=== PATIENT | female | born 1945 | race Caucasian/White ===

== ENCOUNTER 2016-04-02 09:11 | Outpatient (CLI) | payer MEDICARE, OTHER ==
[~2016-04-02] VITALS: Ht 165.1 cm; Wt 69.1 kg
--- NOTE | ~2016-04-02 | HEMODYNAMI ---
PATIENT:Darling BOWER MEDICAL RECORD: [id number] : 49 LOCATION:DGLADIS ADMISSION DATE: 04/02/16 Generatedon:04/02/201614:26 Patient name: Darling BOWER Patient #: [id number] SSN: : 1945 Date of study: 04/02/2016 Page: Of Hemodynamic Procedure Report Patient Data Patient Demographics Procedure consent was obtained First Name: Darling Gender: Female Last Name: CHELI : 1945 Middle Initial: L Age: 71 year(s) Patient #: [id number] Race: Additional ID: [id number] Contact details Address: [address] [place] [address] [address] State: [place] City: [place] Zip code: [address] Past Medical History Allergies Allergen Reaction Date Comments Reported Penicillins 04/02/2016 Other allergy 04/02/2016 no grains, corn, dairy, wheat Other allergy 04/02/2016 erythrimycin Admission Admission Data Admission Date: 04/02/2016 Admission Time: 9:11 Lab Results Lab Result Date: 04/02/2016 Lab Result Time: 0:00 Biochemistry Name Units Result Min Max BUN mg/dl 15 --(--*-)-- 7 18 Creatinine mg/dl 0.8 --(-*--)-- 0.6 1.3 CBC Name Units Result Min Max Hemoglobin g/dl 13.3 -*(----)-- 13.5 17.5 Procedure Procedure Types Cath Procedure Diagnostic Procedure PPM/ICD Loop Recorder Implant Procedure Description Procedure Date Procedure Date: 04/02/2016 Procedure Start Time: 14:17 Procedure End Time: 14:26 Procedure Staff Name Function Nahid Da Silva MD Performing Physician Radha Beltran RT Scrub Cathleen Heck RN Nurse Reinaldo Boogie RT Monitor Reggie Lawson RT Biomedical Specialist Procedure Data Procedure Complications No complications Procedure Medications Medication Administration Route Dosage Vancomycin I.V.P.B 500 mg Oxygen NC 2 l/min Versed I.V. 1 mg Fentanyl I.V. 50 mcg Versed I.V. 1 mg Fentanyl I.V. 50 mcg Hemodynamics Rest Pre Cath Intra NCS Post Cath Vital Signs Time Heart Resp SPO2 etCO2 TC1wyoa NIBP (mmHg) Rhythm Pain Sedation Rate (ipm) (%) (mmHg) (mmHg) Status Level (bpm) 14:01:20 64 21 100 0 0 Measuring NSR 0 (11) 10(A) , No pain 14:01:57 70 29 99 0 0 157/71(116) NSR 0 (11) 10(A) , No pain 14:06:21 63 27 100 0 0 154/64(118) NSR 0 (11) 10(A) , No pain 14:10:41 70 20 100 0 0 152/72(119) NSR 0 (11) 10(A) , No pain 14:15:09 66 21 100 0 0 140/56(107) NSR 0 (11) 10(A) , No pain 14:20:08 74 28 100 0 0 Measuring NSR 0 (11) 10(A) , No pain 14:20:29 80 30 100 0 0 161/76(128) NSR 0 (11) 10(A) , No pain 14:24:53 83 22 100 0 0 170/79(110) NSR 0 (11) 10(A) , No pain Medications Time Medication Route Dose Verified Delivered Reason Notes Effective ness by by 14:01:42 Vancomycin I.V.P.B 500 Nahid Russellie Per mg Rekha Heck RN physician 14:01:55 Oxygen NC 2 Nahid Russellie used for l/min Rekha Heck RN procedure 14:15:25 Versed I.V. 1 mg Nahid Buffie for Rekha Heck RN sedation 14:15:31 Fentanyl I.V. 50 Nahid Russellie for mcg Rekha Heck RN sedation 14:20:54 Versed I.V. 1 mg Nahid Drewie for Rekha Heck RN sedation 14:20:58 Fentanyl I.V. 50 Nahid Drewie for mcg Rekha Heck RN sedation Procedure Log Time Note 13:38:52 Reggie Lawson RT(R) sent for patient. Start room use. 13:38:54 Time tracking: Regular hours 13:38:58 Plan of Care:Hemodynamics will remain stable., Cardiac rhythm will remain stable., Comfort level will be maintained., Respiratory function will remain adequate., Patient/ family verbilizes understanding of procedure., Procedure tolerated without complication., Recovers from procedure without complications.. 13:51:24 Medtronic truck sales representative Tavares Rangel present for procedure. 13:54:05 Patient received from Outpatients to CCL 2 Alert and oriented. Tansferred to table in Supine position. 13:54:06 Warm blankets applied, and slade hugger turned on for patient comfort. 13:54:06 Correct patient and procedure confirmed by team. 13:54:08 Signed procedure consent form obtained from patient. 13:54:08 ECG and BP/O2 sat monitors applied to patient. 13:54:38 H&P Date Dictated: 03/30/2016 Within 30 days and on chart., H&P Addendum completed by physician on day of procedure. (MUST COMPLETE FOR ALL OUTPATIENTS). 13:54:40 Pre-procedure instructions explained to patient. 13:54:40 Pre-op teaching completed and patient verbalized understanding. 13:54:41 Family in waiting room. 13:54:42 Patient NPO since Midnight. 13:59:30 Vital chart was started 14:01:42 Vancomycin 500 mg I.V.P.B was given by Cathleen Heck RN; Per physician; 14:01:55 Oxygen 2 l/min NC was given by Cathleen Heck RN; used for procedure; 14:04:50 Patient allergic to Penicillins 14:05:27 Patient allergic to Other allergyno grains, corn, dairy, wheat 14:06:16 Patient allergic to Other allergyerythrimycin 14:06:18 Is the patient allergic to Iodine/contrast media? No. 14:06:21 Was the patient premedicated? No 14:06:23 Is patient on blood thinner?No 14:06:25 Patient diabetic? No. 14:06:27 ----Pre-sedation anethsthesia assessment.---- 14:06:29 Previous problem with sedation/anesthesia? No ? 14:06:32 Snore? Yes 14:06:36 Sleep apnea? No 14:06:38 Deviated septum? No 14:06:39 Opens mouth fully? Yes 14:06:40 Sticks out tongue? Yes 14:06:43 Airway obstruction? No ? 14:06:46 Dentures? No ? 14:06:52 Patient pain scale 0/10 ?. 14:06:59 IV patent on arrival in left forearm with 0.9% NaCl at 10ml/hr. 14:10:00 Lab Result : Creatinine 0.8 mg/dl 14:10:00 Lab Result : BUN 15 mg/dl 14:10:00 Lab Result : Hemoglobin 13.3 g/dl 14:10:03 Lab results completed and on chart. 14:10:11 Left chest area was prepped with chlora-prep and draped in sterile fashion 14:10:12 Alarms reviewed by R. N. 14:10:13 Sharps counted by scrub and verified by R.N. 14:12:15 Physician paged 14:12:45 Dermabond Pen opened to sterile field. 14:14:53 --------ALL STOP TIME OUT------ 14:14:53 Final Timeout: patient, procedure, and site verified with staff and physician. All members of the team are in agreement. 14:15:15 Left chest site verified by team. 14:15:18 Physical assessment completed. ASA score P 2 - A patient with mild systemic disease as per Nahid Da Silva MD. 14:15:25 Versed 1 mg I.V. was given by Cathleen Heck RN; for sedation; 14:15:31 Fentanyl 50 mcg I.V. was given by Cathleen Heck RN; for sedation; 14:15:31 Sedation plan: IV Moderate Sedation Versed, Fentanyl 14:17:30 Procedure started. 14:17:30 Full Disclosure recording started 14:17:51 Local anesthetic to Chest area with Lidocaine 1% w/epi by Nahid Da Silva MD.INITIAL ACCESS ONLY 14:18:07 Incision made to mid chest. 14:18:09 Generator pocket made/opened. 14:18:27 LINQ INSERTED UNDER SKIN 14:19:35 DERMABOND THE INCISION THEN STERI-STRIP 14:20:54 Versed 1 mg I.V. was given by Cathleen Heck RN; for sedation; 14:20:58 Fentanyl 50 mcg I.V. was given by Cathleen Hcek RN; for sedation; 14:21:05 MEDTRONIC RE(TAVARES RANGEL) CHECKING THE DEVICE 14:22:02 Procedure ended.(Physican Out) 14:22:16 Post Chest area:stable, soft, clean and dry 14:22:21 Post procedure rhythm: sinus rhythm 14:22:22 Post procedure instruction explained to patient.Patient verbalizes understanding. 14:23:21 Medtronic Linq Loop Recorder opened to sterile field. 14:24:09 Patient needs reinforcement of post procedure teaching. 14:24:36 Procedure and supply charges have been captured, reviewed, submitted and are correct. 14:24:40 Procedure Complication : No complications 14:24:44 See physician's report for complete and final results. 14:24:49 Report given to Post Procedure Room. 14:26:03 Patient transfered to Post Procedure Room with Stretcher. 14:26:05 Procedure ended. 14:26:05 Full Disclosure recording stopped 14:26:13 End room use (Document Last) 14:26:43 Vital chart was stopped Device Usage Item Name Manufacture Quantity Catalog Hospital Part Current Minimal Lot# / Number Charge Number Stock Stock Serial# Code Dermabond [place] 1 [id number] 5 [facility] Medtronic Medtronic 1 [id number] 5 Linq Loop Recorder Signature Audit [place] Stage Time Signature Unsigned Intra-Procedure 04/02/2016 Radha 2:26:41 PM Counts RT(R) Signatures Monitor : Reinaldo Boogie RT Signature : Date : Time : [place] [id number] [place] [id number]
[2016-04-02] MEDS ORDERED: RESTASIS EYE DR30 EA EACH EYE (11:02)
[2016-04-02] MEDS ORDERED: LOSARTAN POTASS25 MG PO (11:02)
[2016-04-02 11:12] VITALS: BP 142/88; Ht 165.1 cm; Wt 69.1 kg
[2016-04-02 11:31] LABS: BASOPHILS 0.6 % (0.0-2.0); EOSINOPHILS 1.5 % (0-7); HEMATOCRIT 39.8 % (36.0-48.0); HEMOGLOBIN 13.3 g/dL (12-16); IMMATURE GRANULOCYTES 0.2 % (0-5); LYMPHOCYTES 32.5 % (15-50); MCH 31.3 pg (26.0-34.0); MCHC 33.4 g/dL (31.0-37.0); MCV 93.6 fL (80.0-100.0); MEAN PLATELET VOLUME 10.9 fL (7.4-10.4); MONOCYTES 5.2 % (2-11); PLATELET COUNT 244 10x3/uL (130-400); RBC 4.25 10x6/uL (4.00-5.40); RDW 12.8 % (11.5-14.5); WBC 6.5 10x3/uL (4.8-10.8)
[2016-04-02 11:42] LABS: CALC OSMOLALITY 281 mosm/kg (275-300); CALCIUM 9.4 mg/dL (8.5-10.1); CHLORIDE - SERUM 105 mmol/L (98-107); CREATININE - SERUM 0.8 mg/dL (0.6-1.3); GLUCOSE 91 mg/dL (74-106); POTASSIUM - SERUM 4.2 mmol/L (3.5-5.1); SODIUM 141 mmol/L (136-145); UREA NITROGEN 15 mg/dL (7-18); eGFR NON AFRICAN AMERICAN 75 mL/min (90-120)
--- NOTE | 2016-04-02 14:45 | NUR ---
VSS WITH CHEST PAIN DENIED DRESSING TO MID CHEST SITE OF LINQ LOOP CDI NO BLEEDING NO HEMATOMA NOTED. PATIENT ALERT AND TALKING TO FAMILY WITH NAUSEA DENIED
--- NOTE | 2016-04-02 15:23 | NUR ---
PIV REMOVED FROM LEFT ARM WITH DRESSING APPLIED PATIENT UP TO GET DRESSED FOR DISCHARGE
--- NOTE | 2016-04-02 15:36 | NUR ---
DISCHARGE INSTRUCTIONS GONE OVER WITH PATIENT AND LEFT VIA WC FOR TRANSPORT HOME
--- NOTE | 2016-04-08 13:59 | OP ---
PATIENT NAME: BLAYNE BOWER MEDICAL RECORD: [id number] :49 LOCATION:D.CAT ADMISSION DATE: SURGEON: PETER MILLAN MD DATE OF OPERATION: 04/02/2016 LINQ Placement. INDICATION: Recurrent syncope. PROCEDURE: After informed consent was obtained and after a detailed explanation of the risks, benefits as well as alternative therapies, the patient elected to proceed with LINQ placement. The left chest area was prepped and draped in normal sterile fashion. Left LINQ placement was undertaken subcutaneously of the left chest with R waves greater than 0.4. OVERALL IMPRESSION: Successful LINQ placement for recurrent syncope. TRANSINT:[id number] Voice Confirmation ID: [id number] DOCUMENT ID: [id number] PETER MILLAN MD at 1359 CC: [id number] DICTATION DATE: 04/02/16 1425 PHYSICIAN OFFICE REP: 04/02/161951 DEP CLI 04/02/16 [place] [id number] [place] [address]
== END 2016-04-02 15:38 | disposition home or self-care (01) ==
LOC: D.CATH 09:11
PROVIDERS: Internal Medicine Interventional Cardiology
DX: R55 Syncope and collapse (principal)

== ENCOUNTER 2016-04-08 10:47 | Outpatient (CLI) | payer MEDICARE, OTHER ==
[~2016-04-08] VITALS: Ht 165.1 cm; Wt 69.1 kg
--- NOTE | ~2016-04-08 | HEMODYNAMI ---
PATIENT:BLAYNE BOWER MEDICAL RECORD: [id number] : 49 LOCATION:DGLADIS ADMISSION DATE: 04/08/16 Generatedon:04/08/201614:07 Patient name: BLAYNE BOWER Patient #: [id number] SSN: D OB: 1945 Date of study: 04/08/2016 Page: Of Hemodynamic Procedure Report Patient Data Patient Demographics Procedure consent was obtained First Name: BLAYNE Gender: Female Last Name: CHELI : 1945 [facility] Initial: L Age: 71 year(s) Patient #: [id number] Race: Additional ID: [id number] Contact details Address: [address] [place] [address] State: [place] City: [place] Zip code: [address] Past Medical History Allergies Allergen Reaction Date Comments Reported Penicillins 04/02/2016 Other allergy 04/02/2016 no grains, corn, dairy, wheat Other allergy 04/02/2016 erythrimycin Penicillins 04/08/2016 Erythromycin 04/08/2016 Admission Admission Data Admission Date: 04/08/2016 Admission Time: 10:47 Admit Source: Other Lab Results Lab Result Date: 04/02/2016 Lab Result Time: 0:00 Biochemistry Name Units Result Min Max BUN mg/dl 15 --(--*-)-- 7 18 Creatinine mg/dl 0.8 --(-*--)-- 0.6 1.3 CBC Name Units Result Min Max Hemoglobin g/dl 13.3 -*(----)-- 13.5 17.5 Procedure Procedure Types Cath Procedure Diagnostic Procedure PPM/ICD PPM Dual Implant Procedure Description Procedure Date Procedure Date: 04/08/2016 Procedure Start Time: 13:22 Procedure End Time: 14:06 Procedure Staff Name Function Philip Coe MD Performing Physician Radha Beltran RT Scrub Rain Duval RN Nurse Erwin Lazcano RT Monitor Honorio Tello MD Assisting physician Procedure Data Cath Procedure Fluoroscopy Diagnostic fluoroscopy Total fluoroscopy Time: 4.1 time: 4.1 min min Diagnostic fluoroscopy Total fluoroscopy dose: dose: 23.96 mGy 23.96 mGy Contrast Material Contrast Material Type Amount (ml) Isovue 300 0 Estimated blood loss: 5 ml Procedure Complications No complications Procedure Medications Medication Administration Route Dosage Bupivacaine 0.5% 10 ml Lidocaine 1% with added to field 20 ml Epi Vancomycin Topical 1 g Irrigation Vancomycin I.V.P.B 1 g Versed I.V. 1 mg Fentanyl I.V. 50 mcg Versed I.V. 1 mg Fentanyl I.V. 50 mcg Versed I.V. 1 mg Fentanyl I.V. 50 mcg Versed I.V. 1 mg Fentanyl I.V. 50 mcg Zofran I.V. 4 mg Hemodynamics Rest HGB: 13.3 (g/dl) Heart Rate: 67 (bpm) Snapshots Pre Cath Intra NCS Post Cath Vital Signs Time Heart Resp SPO2 NIBP (mmHg) Rhythm Pain Sedation Rate (ipm) (%) Status Level (bpm) 12:57:51 64 19 99 172/81(136) NSR 0 (11) 10(A) , No pain 13:02:16 65 16 96 145/66(128) NSR 0 (11) 10(A) , No pain 13:06:42 65 16 96 152/62(136) NSR 0 (11) 10(A) , No pain 13:11:04 64 15 95 138/70(122) NSR 0 (11) 10(A) , No pain 13:15:16 59 16 95 147/79(119) NSR 0 (11) 10(A) , No pain 13:19:36 65 16 95 132/70(110) NSR 0 (11) 10(A) , No pain 13:24:35 77 16 99 Measuring NSR 0 (11) 10(A) , No pain 13:24:48 79 16 98 166/87(125) NSR 0 (11) 10(A) , No pain 13:29:47 84 13 97 Measuring NSR 0 (11) 10(A) , No pain 13:30:13 80 13 97 185/80(125) NSR 0 (11) 10(A) , No pain 13:34:35 90 14 93 167/76(114) NSR 0 (11) 10(A) , No pain 13:39:35 95 13 96 Measuring NSR 0 (11) 10(A) , No pain 13:39:55 94 14 96 174/87(129) NSR 0 (11) 10(A) , No pain 13:44:26 96 14 98 165/84(130) NSR 0 (11) 10(A) , No pain 13:48:52 83 15 96 176/82(127) NSR 0 (11) 10(A) , No pain 13:53:22 86 10 98 188/88(136) NSR 0 (11) 10(A) , No pain 13:57:52 81 13 96 177/82(127) NSR 0 (11) 10(A) , No pain 14:02:09 88 13 98 158/83(122) NSR 0 (11) 10(A) , No pain 14:06:33 85 14 98 171/79(119) NSR 0 (11) 10(A) , No pain Medications Time Medication Route Dose Verified Delivered Reason Notes Effectiv eness by by 13:00:10 Vancomycin I.V.P.B 1 g Philip Rain Per [facility] RN physician 13:04:49 Bupivacaine topica 10 ml Philip Philip for local 0.5% [facility] anesthetic MD MARRERO 13:04:59 Lidocaine added 20 ml Philip Philip for local 1% with Epi to [facility] anesthetic field MD MARRERO 13:05:11 Vancomycin Topical 1 g Philip Philip used for Irrigation [facility] procedure MD MARRERO 13:17:34 Versed I.V. 1 mg Philip Rain for CarolinMahad Duval RN sedation 13:17:41 Fentanyl I.V. 50 Philip Rain for mcg Amidon Mukund RN sedation 13:20:02 Versed I.V. 1 mg Philip Rain for AmidonMahad Duval RN sedation 13:20:11 Fentanyl I.V. 50 Philip Rain for mcg Amidon Mukund RN sedation 13:29:26 Versed I.V. 1 mg Philip Rain for Amidon Mukund RN sedation 13:29:30 Fentanyl I.V. 50 [facility] 13:41:47 Versed I.V. 1 mg [address]z for [facility] Mah[facility] Duval RN sedation 13:41:58 Fentanyl I.V. 50 [address]z for mcg [facility] Duval RN sedation 13:44:05 Zofran I.V. 4 mg Philip Rodrigez Per [facility] Duval RN physician Procedure Log Time Note 12:35:43 Admit Source: Other 12:35:48 Erwin Lazcano RT(R) sent for patient. Start room use. 12:35:49 Time tracking: Regular hours 12:35:52 Plan of Care:Hemodynamics will remain stable., Cardiac rhythm will remain stable., Comfort level will be maintained., Respiratory function will remain adequate., Patient/ family verbilizes understanding of procedure., Procedure tolerated without complication., Recovers from procedure without complications.. 12:43:14 H&P Date Dictated: 04/05/2016 Within 30 days and on chart., H&P Addendum completed by physician on day of procedure. (MUST COMPLETE FOR ALL OUTPATIENTS). 12:48:07 Patient received from Pre/Post Procedure Room to [facility] 3 Alert and oriented. Tansferred to table in Supine position. 12:48:08 Warm blankets applied, and slade hugger turned on for patient comfort. 12:48:09 Correct patient and procedure confirmed by team. 12:48:11 Signed procedure consent form obtained from patient. 12:48:15 ECG and BP/O2 sat monitors applied to patient. 12:48:16 Full Disclosure recording started 12:56:38 Vital chart was started 12:56:40 Baseline sample Acquired. 12:57:00 Rhythm: sinus rhythm 12:57:05 Pre-procedure instructions explained to patient. 12:57:06 Pre-op teaching completed and patient verbalized understanding. 12:57:08 Family in waiting room. 12:57:10 Patient NPO since Midnight. 12:57:31 Patient allergic to Penicillins 12:57:35 Patient allergic to Erythromycin 12:57:45 Is the patient allergic to Iodine/contrast media? No. 12:57:46 Is patient on blood thinner?No 12:57:50 ACC The patient was administered the following blood thiners within the last 24 hours: None 12:57:52 Patient diabetic? No. 12:57:54 Patient not . Patient is over age 55. 12:57:57 Previous problem with sedation/anesthesia? No ? 12:57:59 Snore? Yes 12:58:00 Sleep apnea? No 12:58:01 Deviated septum? No 12:58:01 Opens mouth fully? Yes 12:58:02 Sticks out tongue? Yes 12:58:04 Airway obstruction? No ? 12:58:06 Dentures? No ? 12:58:13 Patient pain scale 0/10 ?. 12:58:25 IV patent on arrival in left forearm with 0.9% NaCl at [facility]. 12:58:27 Lab results completed and on chart. 12:58:38 Left chest area was prepped with chlora-prep and draped in sterile fashion 12:58:39 Alarms reviewed by R. N. 12:58:39 Sharps counted by scrub and verified by R.N. 12:58:46 Use device set Pacemaker Set 12:58:49 Mepilex Dressing opened to sterile field. 12:58:49 2.0 Ticron Multipack opened to sterile field. 12:58:50 3.0 Vicryl Multipack [id number] opened to sterile field. 12:58:54 5.0 Monocryl [id number] opened to sterile field. 13:00:10 Vancomycin 1 g I.V.P.B was given by Rain Duval RN; Per physician; 13:00:11 Medtronic office machines sales representative Tavares Waltonoe present for procedure. 13:01:02 Pre sharps counted by scrub and verified by RN: Sutures: 14 Sponges: 5 Stick needles: 2 Skin needles: 2 Blade: 1 Cautery: 1 13:04:49 Bupivacaine 0.5% 10 ml topica was given by Philip Coe MD; for local anesthetic; 13:04:59 Lidocaine 1% with Epi 20 ml added to field was given by Philip Coe MD; for local anesthetic; 13:05:11 Vancomycin Irrigation 1 g Topical was given by Philip Coe MD; used for procedure; 13:05:52 Grounding pad site Left thigh. 13:05:53 Grounding pad site free from injury. 13:06:20 Medtronic Adapta PPM Dual Generator opened to sterile field. 13:06:21 Medtronic 4574-45 PPM Lead opened to sterile field. 13:06:21 Medtronic 4092-52 PPM Lead opened to sterile field. 13:17:20 --------ALL STOP TIME OUT------ 13:17:20 Final Timeout: patient, procedure, and site verified with staff and physician. All members of the team are in agreement. 13:17:24 Left chest site verified by team. 13:17:28 Physical assessment completed. ASA score P 2 - A patient with mild systemic disease as per Philip Coe MD. 13:17:33 Sedation plan: IV Moderate Sedation Versed, Fentanyl 13:17:34 Versed 1 mg I.V. was given by Rain Duval RN; for sedation; 13:17:41 Fentanyl 50 mcg I.V. was given by Rain Duval RN; for sedation; 13:20:02 Versed 1 mg I.V. was given by Rain Duval RN; for sedation; 13:20:11 Fentanyl 50 mcg I.V. was given by Rain Duval RN; for sedation; 13:22:16 Procedure started. 13:22:33 Lidocaine 1% w/epi and Bupivacaine 0.5% to left subclavicular area by Honorio Tello MD. 13:24:15 Incision made to left subclavicular area. 13:24:20 Generator pocket made/opened. 13:27:15 Left subclavian vein accessed with 7Fr Safe Sheath. 13:28:45 Ventricular lead inserted and advanced. 13:28:54 Peel-a-way sheath was split and removed. 13:29:01 Left subclavian vein accessed with 7Fr Safe Sheath. 13:29:12 Atrial lead inserted and advanced. 13:29:26 Versed 1 mg I.V. was given by Rain Duval RN; for sedation; 13:29:30 Fentanyl 50 mcg I.V. was given by Rain Duval RN; for sedation; 13:29:52 Peel-a-way sheath was split and removed. 13:31:00 Ventricular lead positioned. 13:33:18 Ventricular lead tested. 13:35:12 Atrial lead positioned. 13:37:00 Atrial lead tested. 13:40:37 Ventricular lead attachment was completed with 2-0 ticron. 13:41:03 Atrial lead attachment was completed with 2-0 ticron. 13:41:47 Versed 1 mg I.V. was given by Rain Duval RN; for sedation; 13:41:58 Fentanyl 50 mcg I.V. was given by Rain Duval RN; for sedation; 13:44:05 Zofran 4 mg I.V. was given by Rain Duval RN; Per physician; 13:46:04 PPM Dual was attached to lead(s) and inserted into pocket. 13:48:35 Generator was sutured in place with 2-0 ticron. 13:50:24 Device pocket was irrigated with Vancomycin. 13:50:35 Subcutaneous closure was completed with 3-0 vicryl. 13:54:07 Skin closure was completed with 5-0 monocryl. 13:54:54 Parameters-- Generator: Mode: DEMAND. Lower Rate: 60bpm. Upper Rate: 130bpm. 13:55:29 Parameters--Ventricular P/R Wave: 12.9mV. Current: 0.8mA; Threshold: 0.7V; Impedence: 943OHMS. 13:55:57 Parameters--Atrial P/R Wave: 3.9mV. Current: 0.9mA; Threshold: 0.5V; Impedence: 606OHMS. 13:57:24 Lt Chest incision was dressed with 4 x 4 and Tegaderm. 13:57:36 Procedure ended.(Physican Out) 13:58:14 Fluoroscopy time 04.10 minutes. 13:59:29 Fluoroscopy dose: 23.96 mGy 13:59:29 Flurop Dose total: 23.96 13:59:31 Sharps counted by scrub and verified by R.N. 13:59:35 Contrast amount:Isovue 300 0ml. 13:59:38 Insertion/operative site no bleeding no hematoma. 13:59:46 Post-procedure physical assessment completed. ASA score P 2 - A patient with mild systemic disease as per Honorio Tello MD. 13:59:49 Post procedure rhythm: unchanged. 13:59:52 Estimated blood loss: 5 ml 14:00:02 Post procedure instruction explained to patient.Patient verbalizes understanding. 14:00:02 Patient needs reinforcement of post procedure teaching. 14:00:14 Procedure Complication : No complications 14:00:37 Procedure and supply charges have been captured, reviewed, submitted and are correct. 14:06:36 Vital chart was stopped 14:06:38 See physician's report for complete and final results. 14:06:40 Report given to PCU. 14:06:45 Patient transfered to PCU with Bed. 14:06:52 Procedure ended. 14:06:52 Full Disclosure recording stopped 14:07:13 End room use (Document Last) Device Usage Item Name Manufacture Quantity Catalog Hospital Part Current Minimal Lo t# / Number Charge Number Stock Stock Serial# Code Mepilex Cardinal 1 [id number] 5 [facility] 2.0 Ethicon 2 [id number] 151324 5 Ticron Multipack 3.0 Ethicon 1 [id number] 812199 5 Vicryl Multipack [id number] 5.0 Ethicon 1 [id number] 229523 029670 5 Monocryl [id number] Medtronic Medtronic 1 [id number] [id number] 5 NW [id number] Adapta EX P PPM Dual 7- -17 Generator Medtronic Medtronic 1 4574-45 [id number] 304693 5 BB [id number] 4574-45 EX P PPM Lead -17 Medtronic Medtronic 1 4092-52 589854 749539 5 LE [id number] 4092-52 EX P PPM Lead -17 Signature Audit [place] Stage Time Signature Unsigned Intra-Procedure 04/08/2016 Erwin Lazcano 2:07:36 PM RT(R) Signatures Monitor : Erwin Lazcano RT Signature : Date : Time : [facility] [address] [place] [address]
[~2016-04-08 10:47] MED LIST: LOSARTAN POTASS25 MG PO; RESTASIS EYE DR30 EA EACH EYE
[2016-04-08 12:05] LABS: HEMATOCRIT 38.7 % (36.0-48.0); HEMOGLOBIN 12.7 g/dL (12-16); MCH 30.8 pg (26.0-34.0); MCHC 32.8 g/dL (31.0-37.0); MCV 93.9 fL (80.0-100.0); MEAN PLATELET VOLUME 10.6 fL (7.4-10.4); RBC 4.12 10x6/uL (4.00-5.40); RDW 12.5 % (11.5-14.5); WBC 5.7 10x3/uL (4.8-10.8)
[2016-04-08 12:09] VITALS: BP 149/62; BMI 25.3
[2016-04-08 12:15] LABS: APTT 36.1 SECONDS (22.8-39.4); CALC OSMOLALITY 286 mosm/kg (275-300); CARBON DIOXIDE 29.1 mmol/L (21.0-32.0); CHLORIDE - SERUM 107 mmol/L (98-107); CREATININE - SERUM 0.8 mg/dL (0.6-1.3); GLUCOSE 97 mg/dL (74-106); INR 1.03 (0.85-1.17); POTASSIUM - SERUM 4.1 mmol/L (3.5-5.1); PROTIME 13.3 SECONDS (11.6-15.0); SODIUM 143 mmol/L (136-145); UREA NITROGEN 19 mg/dL (7-18); eGFR NON AFRICAN AMERICAN 75 mL/min (90-120)
[2016-04-08 14:27] VITALS: BP 136/76; Ht 165.1 cm; Wt 69.1 kg
--- NOTE | 2016-04-08 15:48 | NUR ---
PT IS ALERT. ASSESSMENT DONE PER FLOWSHEET. NO OTHER NEEDS AT THIS TIME. WILL CONTINUE TO MONITOR.
[2016-04-08 16:42] VITALS: BP 153/60
[2016-04-08 20:00] VITALS: BP 152/53
[2016-04-09 02:12] VITALS: BP 113/62
[2016-04-09 08:00] VITALS: BP 164/65
--- NOTE | 2016-04-09 09:23 | NUR ---
TELEMETRY SR WITH OCC PACED BEATS. LEFT CHES DRSG CLEAN AND YESENIA. LEFT ARM IN SLING. CALL LIGHT IN REACH. WILL CONT. PLAN OF CARE.
--- NOTE | 2016-04-09 10:25 | NUR ---
IV AND TELEMETRY DCD. DC PLANS GIVEN. UNDERSTANDING VOICED. ESCORTED TO CAR BY W/C.
--- NOTE | 2016-04-13 09:30 | OP ---
PATIENT NAME: BLAYNE OCLEMAN MEDICAL RECORD: [id number] :49 LOCATION:D.CAT ADMISSION DATE: SURGEON: YVONNE JESSICA MD DATE OF OPERATION: 04/08/2016 PROCEDURE: Lead portion of permanent pacemaker placement. SURGEON: Honorio Tello MD. INDICATION: Tachybrady syndrome documented via link monitor. DESCRIPTION OF PROCEDURE: After left subclavian was cannulated via modified Seldinger technique via Dr. Tello, first under fluoroscopic guidance, I placed the RV lead in the RV apex without difficulty. After adequate R waves and thresholds were obtained, again, fluoroscopic guidance, I placed the right atrial lead into the right atrial appendage without difficulty. After adequate P waves and thresholds were obtained, the leads were attached to appropriate poles of the generator and the pocket was closed via Dr. Tello. IMPRESSION: Successful lead portion of permanent pacemaker placement on Blayne Coleman. COMPLICATIONS: None. DISPOSITION: To the floor, stable. TRANSINT:[id number] Voice Confirmation ID: [id number] DOCUMENT ID: [id number] YVONNE JESSICA MD at 0930 CC: [id number] DICTATION DATE: 04/08/16 1348 [facility]: 04/08/16 1510 [facility] CLI 04/09/16 [place] [id number] [place] [address]
--- NOTE | 2016-04-23 13:33 | OP ---
PATIENT NAME: BLAYNE BOWER MEDICAL RECORD: [id number] :49 LOCATION:D[facility] ADMISSION DATE: SURGEON: HONOROI IRVING MD DATE OF OPERATION: 04/08/2016 PREOPERATIVE DIAGNOSES: 1. Bradycardia. 2. Sick sinus syndrome. POSTOPERATIVE DIAGNOSES: 1. Bradycardia. 2. Sick sinus syndrome. PROCEDURE: Dual lead pacemaker placement with fluoroscopic interpretation. SURGEON: Honorio Irving MD. COSURGEON: Philip Coe MD. REPORT OF OPERATION: The patient's left chest was prepped and draped in sterile fashion. A total of 25 cc of 1% lidocaine was infused into the surrounding tissues. A skin incision was made on the left lateral chest just below the lateral clavicle. Electrocautery was used to dissect through subcutaneous tissues and a subcutaneous pouch was made overlying the pectoral fascia. We accessed the subclavian vein with 2 separate sticks. A guidewires were advanced with ease and fluoro was used to note that the wires were in good position in the venous system. Dilator trocar device were placed over the wires and the wire and dilators were removed. The leads were inserted through the trocars and the trocars were removed. At this point, Dr. Coe placed the leads appropriately in atrium and ventricle. Once leads have been checked and noted to be functioning appropriately, then the leads were sutured down using 0 Tycron. These were then affixed to the dual lead pacemaker and the pacemaker was inserted into the subcutaneous pouch and sutured down with an 0 Tycron. We irrigated out the wound thoroughly with antibiotic solution. The subcutaneous tissues were then reapproximated with interrupted 3-0 Vicryls and the skin was closed with running subcutaneous 5-0 Monocryl. COMPLICATIONS: None. CONDITION: Stable. ANESTHESIA: Local MAC. BLOOD LOSS: Minimal. TRANSINT:[id number] Voice Confirmation ID: [id number] DOCUMENT ID: [id number] OPERATIVE REPORT [id number] BLAYNE BOWER CHRISTIAN MD at 1333 CC: PHILIP JESSICA MD [id number] DICTATION DATE: 04/08/16 1402 MANAGER PROGRAM MANAGEMENT: 04/08/16 1539 DEP CLI 04/09/[address] [id number]
== END 2016-04-09 10:31 | disposition home or self-care (01) ==
LOC: D.CATH 10:47 → D.M2 14:08 → D.CATH 04-09 10:31
PROVIDERS: Internal Medicine Interventional Cardiology
DX: I49.5 Sick sinus syndrome (principal)

== ENCOUNTER 2016-04-10 09:39 | Emergency (ER) | payer MEDICARE, OTHER ==
[2016-04-08 14:27] VITALS: BMI 25.3
[2016-04-10 10:24] LABS: BASOPHILS 0.4 % (0.0-2.0); EOSINOPHILS 2.3 % (0-7); HEMATOCRIT 39.5 % (36.0-48.0); HEMOGLOBIN 13.2 g/dL (12-16); IMMATURE GRANULOCYTES 0.2 % (0-5); LYMPHOCYTES 22.7 % (15-50); MCH 30.9 pg (26.0-34.0); MCHC 33.4 g/dL (31.0-37.0); MCV 92.5 fL (80.0-100.0); MEAN PLATELET VOLUME 10.5 fL (7.4-10.4); NEUTROPHILS 68.4 % (40-80); PLATELET COUNT 204 10x3/uL (130-400); RBC 4.27 10x6/uL (4.00-5.40); RDW 12.3 % (11.5-14.5); WBC 5.2 10x3/uL (4.8-10.8)
[2016-04-10 10:51] LABS: ALBUMIN 3.5 g/dL (3.4-5.0); ALKALINE PHOSPHATASE 132 U/L (46-116); BILIRUBIN - TOTAL 0.79 mg/dL (0.2-1.3); CALC OSMOLALITY 278 mosm/kg (275-300); CALCIUM 9.2 mg/dL (8.5-10.1); CARBON DIOXIDE 31.7 mmol/L (21.0-32.0); CHLORIDE - SERUM 102 mmol/L (98-107); CREATININE - SERUM 0.7 mg/dL (0.6-1.3); GLUCOSE 108 mg/dL (74-106); PROTEIN - SERUM 6.7 g/dL (6.4-8.2); SODIUM 138 mmol/L (136-145); UREA NITROGEN 18 mg/dL (7-18); eGFR NON AFRICAN AMERICAN 88 mL/min (90-120)
[2016-04-10 10:56] LABS: CKMB 0.8 U/L (0.0-3.6); CREATINE KINASE 48 UL (21-215); TROPONIN-I 0.018 ng/mL (0.000-0.060)
[2016-04-10 11:01] LABS: ALT (SGPT) 1332 U/L (10-68)
[2016-04-10 11:37] LABS: AMYLASE - SERUM 66 U/L (25-115); LIPASE 176 U/L (73-393)
[2016-04-13 10:19] LABS: HEPATITIS C ANTIBODY <0.1 (0.0-0.9)
== END 2016-04-10 14:54 | disposition home or self-care (01) ==
LOC: D.ER 09:39
PROVIDERS: Nurse Practitioner Acute Care
DX: K59.00 Constipation, unspecified (principal); R79.89 Other specified abnormal findings of blood chemistry; I10 Essential (primary) hypertension; K21.9 Gastro-esophageal reflux disease without esophagitis; I34.1 Nonrheumatic mitral (valve) prolapse; Z95.0 Presence of cardiac pacemaker

== ENCOUNTER → 2016-05-19 07:42 | Outpatient (CLI) | payer MEDICARE, OTHER ==
[2016-04-08 14:27] VITALS: BMI 25.3
== END ==
LOC: D.US 07:42
DX: I70.219 Atherosclerosis of native arteries of extremities with intermittent claudication, unspecified extremity (principal); M79.605 Pain in left leg; M79.604 Pain in right leg

== ENCOUNTER → 2017-10-21 10:26 | Outpatient (CLI) | payer MEDICARE, BC ==
[2017-07-05 11:04] VITALS: BMI 24.3
[~2017-10-21 10:26] MED LIST changes: +BENTYL10 MG; +CHRONULAC30 ML PO; +CIPRO500 MG PO; +COZAAR25 MG PO; +CYCLOBENZAPRINE10 MG PO; +MEPERIDINE HCL50 MG PO; +OMEPRAZOLE40 MG PO; +ZOFRAN ODT4 MG/UDTAB PO
[2017-10-21 13:28] LABS: ERYTHROCYTE SEDIMENTATION RATE 5 mm/hr (0-30)
[2017-10-24 03:06] LABS: CALCITONIN <2.0 pg/mL (0.0-5.0); GASTRIN 33 pg/mL (0-115)
[2017-10-26 16:14] LABS: 5HIAA - 24HR 9.9 mg/24 hr (0.0-14.9); 5HIAA - UR 3.3 mg/L (Undefined)
[2017-10-27 20:08] LABS: OVA + PARASITE EXAM Final report (())
== END | disposition home or self-care (01) ==
LOC: D.LAB 10:26
PROVIDERS: Surgery
DX: R19.7 Diarrhea, unspecified (principal)

== ENCOUNTER 2017-10-28 19:26 | Emergency (ER) | payer MEDICARE, BC ==
[~2017-10-28] VITALS: Ht 162.6 cm; Wt 59.1 kg
[~2017-10-28 19:26] MED LIST changes: -BENTYL10 MG; -CHRONULAC30 ML PO; -CIPRO500 MG PO
[2017-10-28 19:31] VITALS: Ht 162.6 cm; Wt 59.1 kg
[2017-10-28] MEDS ORDERED: BENTYL10 MG (19:33)
[2017-10-28] MEDS ORDERED: CIPRO500 MG PO (19:34)
[2017-10-28 20:21] LABS: ALBUMIN 3.6 g/dL (3.4-5.0); ALKALINE PHOSPHATASE 93 U/L (46-116); ALT (SGPT) 49 U/L (10-68); BILIRUBIN - TOTAL 0.22 mg/dL (0.2-1.3); CALC OSMOLALITY 277 mosm/kg (275-300); CALCIUM 8.3 mg/dL (8.5-10.1); CARBON DIOXIDE 27.9 mmol/L (21.0-32.0); CHLORIDE - SERUM 107 mmol/L (98-107); CREATININE - SERUM 1.2 mg/dL (0.6-1.3); GLUCOSE 79 mg/dL (74-106); POTASSIUM - SERUM 4.3 mmol/L (3.5-5.1); PROTEIN - SERUM 6.8 g/dL (6.4-8.2); SODIUM 140 mmol/L (136-145); UREA NITROGEN 12 mg/dL (7-18); eGFR NON AFRICAN AMERICAN 47 mL/min (90-120)
[2017-10-28 20:32] LABS: AMYLASE - SERUM 81 U/L (25-115); CKMB 1.4 U/L (0.0-3.6); TROPONIN-I < 0.017 ng/mL (0.000-0.060)
[2017-10-28 21:06] LABS: BASOPHILS 0.5 % (0-2); EOSINOPHILS 3.7 % (0-7); IMMATURE GRANULOCYTES 0.3 % (0-5); LYMPHOCYTES 34.9 % (15-50); MCH 30.7 pg (26.0-34.0); MCHC 33.3 g/dL (31.0-37.0); MEAN PLATELET VOLUME 11.3 fL (7.4-10.4); MONOCYTES 7.4 % (2-11); NEUTROPHILS 53.2 % (40-80); PLATELET COUNT 254 10x3/uL (130-400); RBC 4.24 10x6/uL (4.00-5.40); RDW 12.6 % (11.5-14.5); WBC 7.7 10x3/uL (4.8-10.8)
[2017-10-28 21:07] LABS: APPEARANCE CLEAR (CLEAR); BILIRUBIN NEGATIVE (NEGATIVE); COLOR YELLOW (YELLOW); GLUCOSE NEGATIVE (NEGATIVE); KETONE NEGATIVE (NEGATIVE); NITRITE NEGATIVE (NEGATIVE); PROTEIN NEGATIVE (NEGATIVE); UROBILINOGEN NORMAL (NORMAL)
[2017-10-28] MEDS ORDERED: CHRONULAC30 ML PO (23:18)
[2017-10-28 23:31] VITALS: BP 163/58
== END 2017-10-28 23:44 | disposition home or self-care (01) ==
LOC: D.ER 19:26
PROVIDERS: Family Medicine
DX: R10.13 Epigastric pain (principal); Z87.19 Personal history of other diseases of the digestive system; R11.0 Nausea

== ENCOUNTER → 2017-11-08 08:48 | Outpatient (CLI) | payer MEDICARE, BC ==
[2017-10-28 19:31] VITALS: BMI 22.3
--- NOTE | ~2017-11-08 | EC ---
PATIENT:BLAYNE BOWER DATE OF SERVICE: 11/08/17 SEX: F MEDICAL RECORD: [id number] DATE OF : 49 LOCATION:[facility] AGE OF PATIENT: 72 ADMISSION DATE: 11/08/17 REFERRING PHYSICIAN: INTERPRETING PHYSICIAN: YVONNE JESSICA MD ECHOCARDIOGRAM REPORT ECHO CHARGES 4 ECHO COMPLETE Date: 11/08/17 CLINICAL DIAGNOSIS: SYNCOPE ECHOCARDIOGRAPHIC MEASUREMENTS (adult normal given) AC root (d.<3.7cm) 2.6 cm LV Septum d (<1.2 cm> 0.6 cm Valve Excursion 1.5 cm LV Septum (systole) 0.8 cm Left Atria (s.<4.0cm> 2.5 cm LVPW d(<1.2cm) 0.6 cm RV (d.<2.3cm) 2.7 cm LVPW (sytole) 0.9 cm LV diastole(<5.6CM) 4.3 cm MV E-F(>70mm/sec) cm LV systole 3.5 cm LVOT Diameter 1.8 cm MV exc.(>10mm) cm Est.ejection fraction (50-75%) % DOPPLER: LVIT cm/sec A 118 cm/sec E 112 cm/sec LA cm/sec RVSP 33.8 mmHg LVOT 138 cm/sec AOP1/2T m/s Asc. Ao 170 cm/sec RVOT 59 cm/sec RA cm/sec PA 78 cm/sec AV Gradient Peak 11.6 mmHg AV Mean 7.0 mmHg AV Area 2.0 cm MV Gradient Peak 6.7 mmHg MV Mean 3.6 mmHg MV Area cm COMMENTS: Tiler'S Assistant: Jose David [facility] Front End Ui Developer: 3 Dr. Coe TAPE# PACS Pericardial Effusion N DATE OF SERVICE: Adequate 2D, color flow, spectral Doppler, and M-mode. No LVH. LV internal dimension is normal, wall motion is normal. EF greater than or equal to 55%. Aortic valve is tricuspid. No evidence of stenosis on Doppler interrogation. Left atrium is normal at 3.5 cm. Mitral valve shows no prolapse. Trace MR. Right-sided chambers grossly normal. Trace TR. TRANSINT:[id number] Voice Confirmation ID: [id number] DOCUMENT ID: [id number] ECHOCARDIOGRAM REPORT [id number] BLAYNE BOWER YVONNE JESSICA MD at 0843 CC: [id number] DICTATION DATE: 11/08/17 1240 SENIOR ACCOUNT EXECUTIVE: 11/08/17 1253 DEP CLI 11/08/17 [id number] [place] [address]
[~2017-11-08 08:48] MED LIST changes: +BENTYL10 MG; +CHRONULAC30 ML PO; +CIPRO500 MG PO
== END | disposition home or self-care (01) ==
LOC: D.ECHO 08:48
DX: R55 Syncope and collapse (principal)

== ENCOUNTER 2018-05-15 15:02 | Emergency (ER) | payer MEDICARE, BC ==
[~2018-05-15] VITALS: Ht 162.6 cm; Wt 56.8 kg
[2018-05-15 15:11] VITALS: Ht 162.6 cm; Wt 56.8 kg
[2018-05-15 15:30] LABS: BASOPHILS 0.5 % (0-2); EOSINOPHILS 2.6 % (0-7); HEMATOCRIT 40.5 % (36.0-48.0); HEMOGLOBIN 13.7 g/dL (12-16); IMMATURE GRANULOCYTES 0.3 % (0-5); LYMPHOCYTES 41.2 % (15-50); MCH 30.8 pg (26.0-34.0); MCHC 33.8 g/dL (31.0-37.0); MEAN PLATELET VOLUME 10.7 fL (7.4-10.4); NEUTROPHILS 49.4 % (40-80); PLATELET COUNT 285 10x3/uL (130-400); RBC 4.45 10x6/uL (4.00-5.40); RDW 13.1 % (11.5-14.5); WBC 9.1 10x3/uL (4.8-10.8)
[2018-05-15 15:51] LABS: ALBUMIN 3.7 g/dL (3.4-5.0); ALKALINE PHOSPHATASE 92 U/L (46-116); ALT (SGPT) 63 U/L (10-68); BILIRUBIN - TOTAL 0.59 mg/dL (0.2-1.3); CALC OSMOLALITY 280 mosm/kg (275-300); CALCIUM 9.2 mg/dL (8.5-10.1); CARBON DIOXIDE 27.4 mmol/L (21.0-32.0); CHLORIDE - SERUM 101 mmol/L (98-107); CREATININE - SERUM 1.1 mg/dL (0.6-1.3); GLUCOSE 108 mg/dL (74-106); POTASSIUM - SERUM 3.7 mmol/L (3.5-5.1); PROTEIN - SERUM 7.3 g/dL (6.4-8.2); SODIUM 140 mmol/L (136-145); UREA NITROGEN 16 mg/dL (7-18); eGFR NON AFRICAN AMERICAN 52 mL/min (90-120)
[2018-05-15 16:07] LABS: CKMB 1.3 U/L (0.0-3.6); CREATINE KINASE 75 UL (21-215); MAGNESIUM - SERUM 2.1 mg/dL (1.8-2.4); PRO BNP 347 pg/mL (0-125)
[2018-05-15 16:08] LABS: TROPONIN-I < 0.017 ng/mL (0.000-0.060)
[2018-05-15 19:23] VITALS: BP 173/84
== END 2018-05-15 18:45 | disposition home or self-care (01) ==
LOC: D.ER 15:02
PROVIDERS: Emergency Medicine
DX: I10 Essential (primary) hypertension (principal); R07.9 Chest pain, unspecified; M79.602 Pain in left arm

== ENCOUNTER → 2018-05-23 08:57 | Outpatient (CLI) | payer MEDICARE, BC ==
[2018-05-15 15:11] VITALS: BMI 21.5
== END | disposition home or self-care (01) ==
LOC: D.HCCARDIO 08:57
PROVIDERS: ATTEND Internal Medicine Cardiovascular Disease
DX: R55 Syncope and collapse (principal)

== ENCOUNTER → 2018-07-28 13:06 | Outpatient (CLI) | payer MEDICARE, BC ==
[2018-05-15 15:11] VITALS: BMI 21.5
== END | disposition home or self-care (01) ==
LOC: D.US 13:06
PROVIDERS: ATTEND Obstetrics & Gynecology
DX: N60.12 Diffuse cystic mastopathy of left breast (principal); N60.11 Diffuse cystic mastopathy of right breast; N64.4 Mastodynia

== ENCOUNTER 2018-11-18 20:18 | Emergency (ER) | payer MEDICARE, BC ==
[~2018-11-18] VITALS: Ht 162.6 cm; Wt 64.1 kg
[2018-11-18 20:26] VITALS: Ht 162.6 cm; Wt 64.1 kg
[2018-11-18 21:13] LABS: BASOPHILS 0.6 % (0-2); EOSINOPHILS 4.6 % (0-7); HEMATOCRIT 36.6 % (36.0-48.0); HEMOGLOBIN 12.7 g/dL (12-16); IMMATURE GRANULOCYTES 0.1 % (0-5); LYMPHOCYTES 41.3 % (15-50); MCH 30.5 pg (26.0-34.0); MCHC 34.7 g/dL (31.0-37.0); MEAN PLATELET VOLUME 10.4 fL (7.4-10.4); MONOCYTES 6.1 % (2-11); NEUTROPHILS 47.3 % (40-80); PLATELET COUNT 234 10x3/uL (130-400); RBC 4.16 10x6/uL (4.00-5.40); RDW 12.7 % (11.5-14.5); WBC 6.8 10x3/uL (4.8-10.8)
[2018-11-18 21:22] LABS: APTT 33.8 SECONDS (22.8-39.4); INR 0.98 (0.85-1.17); PROTIME 12.5 SECONDS (11.6-15.0)
[2018-11-18 21:23] LABS: D-DIMER-QUANTITATIVE 0.52 ug/mLFEU (0.20-0.54)
[2018-11-18 21:25] LABS: ALBUMIN 3.5 g/dL (3.4-5.0); ALKALINE PHOSPHATASE 88 U/L (46-116); ALT (SGPT) 43 U/L (10-68); BILIRUBIN - TOTAL 0.32 mg/dL (0.2-1.3); CALC OSMOLALITY 288 mosm/kg (275-300); CALCIUM 8.5 mg/dL (8.5-10.1); CARBON DIOXIDE 28.5 mmol/L (21.0-32.0); CHLORIDE - SERUM 107 mmol/L (98-107); CREATININE - SERUM 0.9 mg/dL (0.6-1.3); GLUCOSE 101 mg/dL (74-106); POTASSIUM - SERUM 3.9 mmol/L (3.5-5.1); PROTEIN - SERUM 6.3 g/dL (6.4-8.2); SODIUM 144 mmol/L (136-145); UREA NITROGEN 18 mg/dL (7-18); eGFR NON AFRICAN AMERICAN 65 mL/min (90-120)
[2018-11-18 21:37] LABS: CKMB 1.6 U/L (0.0-3.6); CREATINE KINASE 68 UL (21-215); MAGNESIUM - SERUM 2.2 mg/dL (1.8-2.4); THYROID STIMULATING HORMONE 3.38 uIU/mL (0.36-3.74); TROPONIN-I < 0.017 ng/mL (0.000-0.060)
[2018-11-19 00:25] VITALS: BP 155/71
== END 2018-11-19 00:26 | disposition other institution (70) ==
LOC: D.ER 20:18
PROVIDERS: Emergency Medicine
DX: G45.9 Transient cerebral ischemic attack, unspecified (principal); I10 Essential (primary) hypertension

== ENCOUNTER 2019-08-03 16:30 | Emergency (ER) | payer MEDICARE, BC ==
[~2019-08-03] VITALS: Ht 162.6 cm; Wt 63.6 kg
[2019-08-03 17:13] VITALS: Ht 162.6 cm; Wt 63.6 kg
[2019-08-03 20:38] VITALS: BP 175/86
== END 2019-08-03 20:04 | disposition home or self-care (01) ==
LOC: D.ER 16:30
DX: M54.2 Cervicalgia (principal); R51 Headache; M62.838 Other muscle spasm; I10 Essential (primary) hypertension; R11.0 Nausea

== ENCOUNTER 2020-08-21 12:23 | Emergency (ER) | payer MEDICARE ==
[~2020-08-21] VITALS: Ht 162.6 cm; Wt 60.5 kg
[2020-08-21 12:25] VITALS: BP 170/57; Ht 162.6 cm; Wt 60.5 kg
[2020-08-21 13:07] LABS: HEMATOCRIT 36.8 % (36.0-48.0); LYMPHOCYTES 22.4 % (15-50); MCH 29.5 pg (26.0-34.0); MCHC 32.5 g/dL (31.0-37.0); MCV 90.7 fL (80.0-100.0); MEAN PLATELET VOLUME 8.9 fL (7.4-10.4); MONOCYTES 5.2 % (2-11); NEUTROPHILS 67.4 % (40-80); PLATELET COUNT 242 10x3/uL (130-400); RBC 4.06 10x6/uL (4.00-5.40); RDW 13.2 % (11.5-14.5); WBC 7.5 10x3/uL (4.8-10.8)
[2020-08-21 13:18] LABS: CALC OSMOLALITY 282 mosm/kg (275-300); CALCIUM 8.7 mg/dL (8.5-10.1); CHLORIDE - SERUM 105 mmol/L (98-107); GLUCOSE 102 mg/dL (74-106); POTASSIUM - SERUM 4.1 mmol/L (3.5-5.1); SODIUM 140 mmol/L (136-145); UREA NITROGEN 24 mg/dL (7-18); eGFR NON AFRICAN AMERICAN 58 mL/min (90-120)
[2020-08-21 13:35] LABS: ALBUMIN 3.5 g/dL (3.4-5.0); ALKALINE PHOSPHATASE 88 U/L (30-120); ALT (SGPT) 42 U/L (10-68); CREATINE KINASE 54 UL (21-215); MAGNESIUM - SERUM 2.2 mg/dL (1.8-2.4); PRO BNP 390 pg/mL (0-125); PROTEIN - SERUM 6.5 g/dL (6.4-8.2); TROPONIN-I < 0.017 ng/mL (0.000-0.060)
== END 2020-08-21 17:19 | disposition home or self-care (01) ==
LOC: D.ER 12:23
PROVIDERS: Family Medicine
DX: R55 Syncope and collapse (principal); E86.0 Dehydration; I95.1 Orthostatic hypotension; I10 Essential (primary) hypertension

== ENCOUNTER 2020-08-22 09:45 | Outpatient (CLI) | payer MEDICARE, BC ==
[2020-08-21 12:25] VITALS: BMI 22.8
== END 2020-08-22 23:59 | disposition home or self-care (01) ==
LOC: D.MAMMO 09:45
PROVIDERS: ATTEND Obstetrics & Gynecology
DX: Z12.31 Encounter for screening mammogram for malignant neoplasm of breast (principal)